=== PATIENT | female | born 1950 | race Caucasian/White ===

== ENCOUNTER → 2020-05-02 07:03 | Outpatient (CLI) | payer MEDICARE, OTHER, SELFPAY ==
[2020-05-02 08:14] LABS: Hemoglobin A1C% w Est Avg Glu 5.8 % (4.0-6.0)
[2020-05-02 08:50] LABS: Free T3, Triiodothyronine Free 3.92 pg/mL (2.77-5.27); T4 Total Thyroxine 6.99 ug/dL (5.5-11.0); T7 (Free Thyroxine Index) 2.34 (1.65-3.89); Triiodothryronine T3 Uptake 33.5 % (23.5-40.5)
[2020-05-02 09:03] LABS: Thyroid Stimulating Hormone 2.68 uIU/mL (0.47-4.68)
== END ==
PROVIDERS: Referring Provider Naturopath; Visit Provider Naturopath
DX: N95.1 Menopausal and female climacteric states (principal); R73.09 Other abnormal glucose; M81.0 Age-related osteoporosis without current pathological fracture
CPT/HCPCS: 36415; 83036; 84144; 84436; 84443; 84479; 84481

== ENCOUNTER → 2020-08-15 08:34 | Outpatient (CLI) | payer MEDICARE, OTHER, SELFPAY ==
[2020-08-17 10:19] LABS: C difficie Toxins A and B, EIA Negative (Negative)
[2020-08-17 17:31] LABS: H. Pylori Antigen Stool Negative (Negative)
== END ==
PROVIDERS: PCP Nurse Practitioner Family; Referring Provider Nurse Practitioner Family; Visit Provider Nurse Practitioner Family
DX: R19.7 Diarrhea, unspecified (principal)
CPT/HCPCS: 87177; 87329; 87338